=== PATIENT | male | born 1965 | race Caucasian/White ===

== ENCOUNTER 2017-01-12 13:41 | Day surgery (SDC) | payer MEDICARE, MEDICAID ==
[~2017-01-12 13:41] MED LIST: AMBIEN5 MG PO; CLARITIN10 MG PO; COLACE100 MG PO; CULTURELLE1 CAP PO; DIOVAN160 MG PO; FERROUS SULFAT325 M1 PO; GLUCOPHAGE500 MG PO; HYDROCHLOROTH12.5 MG PO; IMODIUM2 MG PO; LINZESS145 MCG PO; LIPITOR20 MG PO; LOTRIMIN AF28.35 GM TOP; NORCO 325-5 MG1 TAB PO; TYLENOL ARTHRI650 M1 PO; VITAMIN C250 MG PO; ZOLOFT100 MG PO
== END 2017-01-12 15:05 | disposition short-term general hospital (02) ==
LOC: SURGOP 13:41
PROC: 0TJB8ZZ Inspection of Bladder, Via Natural or Artificial Opening Endoscopic (ICD-10-PCS; principal; 2017-01-12)
DX: N31.9 Neuromuscular dysfunction of bladder, unspecified (principal); N32.89 Other specified disorders of bladder